=== PATIENT | female | born 1960 | race Caucasian/White ===

== ENCOUNTER 2017-04-08 00:41 | Emergency (ER) | payer MEDICAID ==
[~2017-04-08] VITALS: Ht 165.1 cm; Wt 53.2 kg
[2017-04-08 00:43] VITALS: BP 152/96
[2017-04-08] MEDS ORDERED: ACETAMINOPHEN 325 MG TABLET ONE (01:48)
[2017-04-08] MEDS ORDERED: DIPHENHYDRAMINE 25 MG CAPSULE ONE (01:48)
[2017-04-08] MEDS ORDERED: ACETAMINOPHEN 325 MG TABLET PO ONE (02:00)
[2017-04-08] MEDS ORDERED: DIPHENHYDRAMINE 25 MG CAPSULE PO ONE (02:00)
== END 2017-04-08 04:23 | disposition home or self-care (01) ==
LOC: ED 02:13
DX: F31.61 Bipolar disorder, current episode mixed, mild (principal); Z72.9 Problem related to lifestyle, unspecified; Z91.14 Patient's other noncompliance with medication regimen; F17.200 Nicotine dependence, unspecified, uncomplicated
CPT/HCPCS: 99284; Q0163

== ENCOUNTER 2017-04-09 23:50 | Emergency (ER) | payer MEDICAID ==
[~2017-04-09] VITALS: Ht 167.6 cm; Wt 54.5 kg
[2017-04-09 23:54] VITALS: BP 116/67
== END 2017-04-10 01:15 | disposition home or self-care (01) ==
LOC: ED 23:59
DX: S46.912A Strain of unspecified muscle, fascia and tendon at shoulder and upper arm level, left arm, initial encounter (principal); M75.92 Shoulder lesion, unspecified, left shoulder; X50.9XXA Other and unspecified overexertion or strenuous movements or postures, initial encounter; Y93.89 Activity, other specified; Y99.8 Other external cause status; Y92.009 Unspecified place in unspecified non-institutional (private) residence as the place of occurrence of the external cause
CPT/HCPCS: 99284

== ENCOUNTER 2017-04-14 22:04 | Emergency (ER) | payer MEDICAID ==
[~2017-04-14] VITALS: Ht 167.6 cm; Wt 50.8 kg
[2017-04-14 22:06] VITALS: BP 103/68
[2017-04-14] MEDS ORDERED: IBUPROFEN 200 MG TABLET ONE (22:54)
[2017-04-14] MEDS ORDERED: IBUPROFEN 200 MG TABLET PO ONE (23:00)
== END 2017-04-14 23:37 | disposition home or self-care (01) ==
LOC: ED 22:38
DX: M25.512 Pain in left shoulder (principal); M75.32 Calcific tendinitis of left shoulder; Z59.0 Homelessness; X58.XXXA Exposure to other specified factors, initial encounter; Y93.89 Activity, other specified; Y99.8 Other external cause status; Y92.488 Other paved roadways as the place of occurrence of the external cause
CPT/HCPCS: 99282

== ENCOUNTER 2017-04-27 07:34 | Emergency (ER) | payer MEDICAID ==
[~2017-04-27] VITALS: Ht 170.2 cm; Wt 50.8 kg
[2017-04-27 10:13] VITALS: BP 119/79
== END 2017-04-27 10:16 | disposition home or self-care (01) ==
LOC: ED 09:10
DX: R00.2 Palpitations (principal)
CPT/HCPCS: 93005; 99283

== ENCOUNTER 2017-05-11 21:18 | Emergency (ER) | payer MEDICAID ==
[~2017-05-11] VITALS: Ht 170.2 cm; Wt 50.0 kg
[2017-05-11] MEDS ORDERED: AZITHROMYCIN 500 MG TABLET PO ONE (23:30)
[2017-05-11] MEDS ORDERED: CEFTRIAXONE 250 MG IM ONE (23:30)
[2017-05-11] MEDS ORDERED: CEFTRIAXONE 250 MG ONE (23:30)
[2017-05-11] MEDS ORDERED: LIDOCAINE 1%, 20ML ONE (23:31)
[2017-05-11] MEDS ORDERED: AZITHROMYCIN 500 MG TABLET ONE (23:31)
[2017-05-12 00:16] VITALS: BP 107/70
== END 2017-05-12 00:27 | disposition home or self-care (01) ==
LOC: ED 23:10
DX: N89.8 Other specified noninflammatory disorders of vagina (principal)
CPT/HCPCS: 81001; 87077; 87086; 87186; 87210; 87491; 87591; 87808; 96372; 99284; J0696

== ENCOUNTER 2017-05-22 21:40 | Emergency (ER) | payer MEDICAID ==
[~2017-05-22] VITALS: Ht 167.6 cm; Wt 50.3 kg
[2017-05-23 00:11] VITALS: BP 90/51
== END 2017-05-23 00:14 | disposition home or self-care (01) ==
LOC: ED 21:58
DX: R10.30 Lower abdominal pain, unspecified (principal); G89.29 Other chronic pain
CPT/HCPCS: 81001; 87086; 99284

== ENCOUNTER 2017-06-08 09:03 | Emergency (ER) | payer MEDICAID ==
[~2017-06-08] VITALS: Ht 167.6 cm; Wt 50.3 kg
[2017-06-08 09:46] LABS: HEMATOCRIT 40.5 % (34.6-47.8); HEMOGLOBIN 13.4 g/dL (11.7-16.4); WHITE BLOOD COUNT 6.7 x10^3/uL (3.4-10)
[2017-06-08 09:59] LABS: BLOOD UREA NITROGEN 15 mg/dL (7-18)
[2017-06-08 10:05] LABS: ASPARTATE AMINO TRANSFERASE 14 U/L (15-37)
[2017-06-08 10:39] VITALS: BP 103/69
== END 2017-06-08 10:42 | disposition home or self-care (01) ==
LOC: ED 09:32
DX: R10.30 Lower abdominal pain, unspecified (principal)
CPT/HCPCS: 36415; 80053; 81003; 84703; 85025; 99284

== ENCOUNTER 2018-10-17 20:55 | Emergency (ER) | payer MEDICAID ==
[~2018-10-17] VITALS: Ht 170.2 cm; Wt 64.9 kg
[2018-10-17 22:20] LABS: MICROSCOPIC AUTO
[2018-10-17 22:23] LABS: CULTURE INDICATED? YES
[2018-10-17] MEDS ORDERED: PHENAZOPYRIDINE 200 MG TABLET ONE (22:26)
[2018-10-17] MEDS ORDERED: IBUPROFEN 200 MG TABLET ONE (22:27)
[2018-10-17] MEDS ORDERED: IBUPROFEN 200 MG TABLET PO ONE (22:30)
[2018-10-17] MEDS ORDERED: PHENAZOPYRIDINE 200 MG TABLET PO ONE (22:30)
[2018-10-17 23:23] VITALS: BP 131/74
== END 2018-10-17 23:25 | disposition home or self-care (01) ==
LOC: ED 22:28
DX: R10.30 Lower abdominal pain, unspecified (principal); R30.0 Dysuria
CPT/HCPCS: 81001; 87086; 99283

== ENCOUNTER 2018-10-28 20:59 | Emergency (ER) | payer MEDICAID ==
[~2018-10-28] VITALS: Ht 170.2 cm; Wt 57.0 kg
[2018-10-28 21:03] VITALS: BP 115/76
--- NOTE | 2018-10-28 21:05 | NUR ---
KELSEY LEONG FOR C/O "I NEED SOME ABILIFY AND SEROQUEL, I HAVE BABY FEVER". HX OF BIPOLAR AND DEPRESSION. DENIES SI/HI. PT. TURNED ON TV IMMEDIATLY UPON ENTERING ROOM AND STATED "GIVE ME ONE OF THOSE WARM BLANKETS LIKE THEY HAVE AT [employer]." "I WILL FINISH WATCHING THIS FOOTBALL GAME AND THEN CALL MY MOM/DAD TO COME GET ME." CONTINUOUS PULSE OX AND BP MONITORS PLACED. CALL LIGCYRUS IN REACH, WARM BLANKET PROVIDED. DR. JULIEN IN TO EVAL PT. AND DISCUSS POC. ALL SAFETY MEASURES OBSERVED.
[2018-10-28] MEDS ORDERED: QUETIAPINE 100MG TABLET ONE (21:12)
[2018-10-28] MEDS ORDERED: ARIPIPRAZOLE 5 MG TABLET ONE (21:12)
[2018-10-28] MEDS: QUETIAPINE 100MG TABLET PO SCH (21:15)
[2018-10-28] MEDS: ARIPIPRAZOLE 5 MG TABLET PO SCH (21:15)
== END 2018-10-28 21:43 | disposition home or self-care (01) ==
LOC: ED 21:18
DX: F99 Mental disorder, not otherwise specified (principal); Z76.0 Encounter for issue of repeat prescription; F31.9 Bipolar disorder, unspecified; Z72.9 Problem related to lifestyle, unspecified; Z75.9 Unspecified problem related to medical facilities and other health care; Z91.14 Patient's other noncompliance with medication regimen; Z98.51 Tubal ligation status
CPT/HCPCS: 99284

== ENCOUNTER 2018-11-08 07:18 | Emergency (ER) | payer MEDICAID ==
[~2018-11-08] VITALS: Ht 167.6 cm; Wt 60.3 kg
[2018-11-08 07:23] VITALS: BP 142/73
--- NOTE | 2018-11-08 07:35 | NUR ---
pt to room from lobby
--- NOTE | 2018-11-08 07:49 | NUR ---
RANDEE RN: WHEN ASKED WHAT SYMPTOMS BROUGHT PT TO THE ED SHE STATED "EVERYTHING. I NEED A REFERAL TO A GYNOCOLOGIST AND I NEED A NOTE FOR A THICKENER OPERATOR SAYING I CAN'T WALK UP AND DOWN STEPS TO A BUS... I HAVE TO GO TO THE BATHROOM EVERYTIME I SIT DOWN. IT'S NOT A UTI, I HAD THAT CLEARED UP WITH A DNC. I GOT THIS BELLY THAT MAKES ME PEE, IT'S NOT A UTI. I'M IN PERFECT HEALTH. I THOUGHT ABOUT HAVING ANOTHER BABY SO I STUFFED MYSELF WITH PEANUT BUTTER AND CHEESE CRACKERS BUT THE MAN I'M WITH AND I DECIDED WE DON'T WANT A BABY. I WANT A HYSTERECTOMY SO THAT'S WHY I NEED TO GO TO THE GYNOCOLOGIST." PT TAKEN TO US IN NAD.
[2018-11-08 08:00] LABS: BASOPHILS # (AUTO) 0.03 x10^3/uL (0-0.1); BASOPHILS % (AUTO) 1 % (0-1); EOSINOPHILS # (AUTO) 0.07 x10^3/uL (0-0.4); EOSINOPHILS % (AUTO) 1 % (1-7); LYMPHOCYTES # (AUTO) 1.81 x10^3/uL (1-3.4); LYMPHOCYTES % (AUTO) 31 % (22-44); MD NO; MEAN CORPUSCULAR HEMOGLOBIN 30.1 pg (27.0-34.8); MEAN CORPUSCULAR VOLUME 91.4 fL (80-100); MEAN PLATELET VOLUME 8.4 fL (7.4-10.4); MONOCYTES # (AUTO) 0.38 x10^3/uL (0.2-0.8); MONOCYTES % (AUTO) 6 % (2-9); NEUTROPHILS % (AUTO) 61 % (42-75); PLATELET COUNT 220 x10^3/uL (130-400); RED BLOOD COUNT 4.36 x10^6/uL (3.82-5.3); RED CELL DISTRIBUTION WIDTH 14.1 % (9.6-15.2)
--- NOTE | 2018-11-08 08:00 | NUR ---
pt to imaging.
[2018-11-08] MEDS ORDERED: PHENAZOPYRIDINE 200 MG TABLET ONE (08:07)
[2018-11-08 08:09] LABS: ALBUMIN 3.9 g/dL (3.4-5.0); ANION GAP 6 mmol/L (5-15); CALCIUM 9.1 mg/dL (8.5-10.1); CHLORIDE 110 mmol/L (98-107); CREATININE 0.78 mg/dL (0.55-1.02)
--- NOTE | 2018-11-08 08:28 | NUR ---
PT BACK FROM IMAGING.
--- NOTE | 2018-11-08 09:14 | NUR ---
PT TO BATHROOM. PT REFUSED TO BRING BACK UA SAMPLE. PT STATES "I DON'T KNOW." WHEN ASKED ABOUT THE SAMPLE. NO ACUTE DISTRESS NOTED. NO NEEDS REQUESTED AT THIS TIME.
--- NOTE | 2018-11-08 09:14 | NUR ---
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 IF NOT I'LL JUST GO TO [facility] AND HAVE A SIDEWAYS BABY."
--- NOTE | 2018-11-08 09:20 | NUR ---
PT AMBULATORY WITH STEADY GAIT TO BATHROOM. PT ABLE TO GIVE SAMPLE. NO ACUTE DISTRESS NOTED. PT REFUSING NIBP AND PULSE OX MONITOR,.
[2018-11-08] MEDS: PHENAZOPYRIDINE 200 MG TABLET PO ONE ×2 (09:21→09:22)
--- NOTE | 2018-11-08 09:23 | NUR ---
PT OFFERED PAIN MEDICATION. PT STATES "IS THIS THE ONE THAT MAKES MY PEE RED? NO THANK YOU."
[2018-11-08 09:43] LABS: MICROSCOPIC NOT IND
[2018-11-08 09:48] LABS: CULTURE INDICATED? NO
--- NOTE | 2018-11-08 10:17 | NUR ---
Patient/Caregiver given discharge instructions and they have confirmed that they understand the instructions. Patient ambulatory with steady gait. PT STATES SHE HAS MEDICAID AND WILL CALL [facility] FOR TAXI. PT LEFT WITH ALL PERSONAL BELONGINGS.
== END 2018-11-08 10:19 | disposition home or self-care (01) ==
LOC: ED 09:03
DX: N93.8 Other specified abnormal uterine and vaginal bleeding (principal); F17.210 Nicotine dependence, cigarettes, uncomplicated; F31.9 Bipolar disorder, unspecified
CPT/HCPCS: 36415; 76830; 80048; 81003; 82040; 85025; 99284

== ENCOUNTER 2018-12-04 00:22 | Emergency (ER) | payer MEDICAID ==
[~2018-12-04] VITALS: Ht 167.6 cm; Wt 58.9 kg
[2018-12-04] MEDS ORDERED: TRAZODONE 50MG TABLET PO ONE (02:13)
[2018-12-04] MEDS ORDERED: TRAZODONE 50MG TABLET ONE (02:23)
[2018-12-04] MEDS ORDERED: DIPH,PERTUSS(ACELL),TET VAC/PF 0.5 ML IM-VACC ONE ×2 (02:23→02:30)
[2018-12-04 02:38] VITALS: BP 132/78
== END 2018-12-04 02:40 | disposition home or self-care (01) ==
LOC: ED 01:59
DX: F31.9 Bipolar disorder, unspecified (principal); F41.9 Anxiety disorder, unspecified; Z72.9 Problem related to lifestyle, unspecified
CPT/HCPCS: 90471; 90715; 99284

== ENCOUNTER 2019-02-12 06:34 | Emergency (ER) | payer MEDICAID ==
[~2019-02-12] VITALS: Ht 167.6 cm; Wt 59.7 kg
[2019-02-12 06:37] VITALS: BP 115/78
== END 2019-02-12 06:54 | disposition home or self-care (01) ==
LOC: ED 06:46
DX: R21 Rash and other nonspecific skin eruption (principal)
CPT/HCPCS: 99283

== ENCOUNTER 2019-02-27 05:18 | Emergency (ER) | payer MEDICAID ==
[~2019-02-27] VITALS: Ht 167.6 cm; Wt 61.0 kg
--- NOTE | 2019-02-27 05:21 | NUR ---
CALLED FOR TRIAGE, NO ANSWER
[2019-02-27 05:22] VITALS: BP 117/78
--- NOTE | 2019-02-27 06:09 | NUR ---
pt d/c with d/c summary. All questions answered. pt ambulates to registration desk with steady gait for d/c home. pt denies any other needs pertaining to this visit.
== END 2019-02-27 06:19 | disposition home or self-care (01) ==
LOC: ED 06:00
DX: F29 Unspecified psychosis not due to a substance or known physiological condition (principal); F20.9 Schizophrenia, unspecified; F31.9 Bipolar disorder, unspecified
CPT/HCPCS: 82962; 99284

== ENCOUNTER 2019-03-17 01:59 | Emergency (ER) | payer MEDICAID ==
[~2019-03-17] VITALS: Ht 167.6 cm; Wt 60.0 kg
--- NOTE | 2019-03-17 02:25 | NUR ---
BIB [facility] AND TAKEN TO [facility] FOR BED BUGS. PT HAS RUNNY NOSE AND SORE THROAT. ALSO WANTS PRESCRIPTION REFILL FOR SEROQUEL AND ABILIFY.
[2019-03-17 03:07] VITALS: BP 130/70
== END 2019-03-17 03:10 | disposition home or self-care (01) ==
LOC: ED 02:26
DX: Z00.00 Encounter for general adult medical examination without abnormal findings (principal); Z72.9 Problem related to lifestyle, unspecified; F31.9 Bipolar disorder, unspecified; F17.200 Nicotine dependence, unspecified, uncomplicated
CPT/HCPCS: 99283

== ENCOUNTER 2019-03-26 22:54 | Emergency (ER) | payer MEDICAID ==
[~2019-03-26] VITALS: Ht 167.6 cm; Wt 59.6 kg
--- NOTE | 2019-03-26 23:16 | NUR ---
ASSUMED CARE OF PATIENT. PATIENT REPORTS VAGINAL PAIN AND DISCHARGE. VS STABLE. PT SEEN BY GABRIELA ROSALES NO ACUTE DISTRESS NOTED CALL LIGHT IN PLACE. WILL CONTINUE TO MONITOR.
--- NOTE | 2019-03-26 23:37 | NUR ---
PELVIC DONE BY GABRIELA ROSALES PT USING RESTROOM.
[2019-03-26 23:43] LABS: CLUE CELLS NONE SEEN (NONE SEEN)
[2019-03-26 23:44] LABS: WET PREP WBCS FEW (FEW)
[2019-03-26] MEDS ORDERED: AZITHROMYCIN 500 MG TABLET ONE (23:47)
[2019-03-26] MEDS ORDERED: CEFTRIAXONE 250 MG ONE (23:48)
[2019-03-26 23:51] LABS: CULTURE INDICATED? NO; MICROSCOPIC NOT IND
--- NOTE | 2019-03-26 23:59 | NUR ---
PT RESTING IN ROOM. NO ACUTE DISTRESS NOTED. CALL LIGHT IN PLACE. VS STABLE. WILL CONTINUE TO MONITOR.
[2019-03-27] MEDS ORDERED: CEFTRIAXONE 250 MG IM ONE
[2019-03-27] MEDS ORDERED: AZITHROMYCIN 500 MG TABLET PO ONE
[2019-03-27 00:16] VITALS: BP 128/80
== END 2019-03-27 00:18 | disposition home or self-care (01) ==
LOC: ED 23:34
DX: A60.03 Herpesviral cervicitis (principal); N76.0 Acute vaginitis; F17.210 Nicotine dependence, cigarettes, uncomplicated; Z72.9 Problem related to lifestyle, unspecified
CPT/HCPCS: 81003; 81025; 87210; 87491; 87591; 87808; 96372; 99283; J0696

== ENCOUNTER 2019-09-16 22:45 | Emergency (ER) | payer MEDICAID ==
[~2019-09-16] VITALS: Ht 167.6 cm; Wt 86.0 kg
[~2019-09-16 22:45] MED LIST: QUET25TA5 PO
--- NOTE | 2019-09-17 00:33 | NUR ---
URINE SAMPLE TAKEN TO LAB
[2019-09-17 00:42] VITALS: BP 123/77
[2019-09-17 00:46] LABS: MICROSCOPIC INDICATED
[2019-09-17 00:47] LABS: CULTURE INDICATED? YES
[2019-09-17 00:48] LABS: HCG UR SG 1.025 (1.003-1.030)
--- NOTE | 2019-09-17 00:57 | NUR ---
PT SITTING CALMLY IN [place], DENIES NEEDS AT THIS TIME, CHART UP FOR RECHECK
== END 2019-09-17 01:09 | disposition home or self-care (01) ==
LOC: ED 23:32
DX: R39.15 Urgency of urination (principal); F31.9 Bipolar disorder, unspecified; F17.200 Nicotine dependence, unspecified, uncomplicated; Z72.89 Other problems related to lifestyle
CPT/HCPCS: 81001; 81025; 87086; 99283

== ENCOUNTER 2019-10-19 00:26 | Emergency (ER) | payer MEDICAID ==
[~2019-10-19] VITALS: Ht 170.2 cm; Wt 64.5 kg
[2019-10-19 00:31] VITALS: BP 118/70
--- NOTE | 2019-10-19 00:42 | NUR ---
pt seen in triage for a bug in ear, no bug found. pt asked for blanket, which was given. pt doesnt want to come to [facility] and wishes to go. offered cab to [facility], pt stated she doesnt want to go there as they will have bugs also like the [facility]. she stated she is calling her community case manager in am to find other place to live.
== END 2019-10-19 00:45 | disposition home or self-care (01) ==
LOC: ED 00:39
DX: L29.9 Pruritus, unspecified (principal); H92.03 Otalgia, bilateral; F17.200 Nicotine dependence, unspecified, uncomplicated
CPT/HCPCS: 99281

== ENCOUNTER 2019-10-31 00:32 | Emergency (ER) | payer MEDICAID ==
[~2019-10-31] VITALS: Ht 167.6 cm; Wt 63.5 kg
[2019-10-31 00:35] VITALS: BP 147/80
--- NOTE | 2019-10-31 01:07 | NUR ---
THIS IS A 58 YO FEMALE COMING IN FOR " I HAVE A NERVOUS BREAK DOWN " " I AM TERRIFIED ". PATIENT HAS HX OF BIPOLAR DISORDER, DEPRESSION, PREVIOUS ETOH ABUSE 2 YEARS SOBER. PATIENT STATES THIS HAS HAPPENED BEFORE, "BUT NOT LIKE THIS". PATIENT APPEARS CALM, SPEAKING IN FULL SENTENCES, DENIES SOB, DENIES CHEST PAIN. VSS IN TRIAGE. PATIENT MEDICATED PER EMAR, TOLERATED WELL. CALL LIGHT IN REACH, DENIES NEEDS AT THIS TIME.
--- NOTE | 2019-10-31 01:12 | NUR ---
WHEN ASKED HOW PATIENT WAS FEELING AFTER MEDICATION, PATIENT STATES "I FEEL RELAXED NOW". NAD, CALL LIGHT IN REACH, DENIES NEEDS AT THIS TIME. MD NOTIFIED.
== END 2019-10-31 01:47 | disposition home or self-care (01) ==
LOC: ED 01:29
DX: F41.1 Generalized anxiety disorder (principal)
CPT/HCPCS: 99282; Q0177

== ENCOUNTER 2020-02-02 23:59 | Emergency (ER) | payer MEDICAID ==
[~2020-02-02] VITALS: Ht 167.6 cm; Wt 65.3 kg
[2020-02-03 00:04] VITALS: BP 141/93
--- NOTE | 2020-02-03 00:24 | NUR ---
pt to br with ua cup. instructed, gave ua, cloudy sample sent to lab. pt in room with no current needs.
--- NOTE | 2020-02-03 00:38 | NUR ---
cxr to bs
[2020-02-03 00:44] LABS: CULTURE INDICATED? YES; MICROSCOPIC INDICATED
== END 2020-02-03 01:42 | disposition home or self-care (01) ==
LOC: ED 02-03 00:34
DX: N30.00 Acute cystitis without hematuria (principal); R05 Cough; R06.02 Shortness of breath; R10.9 Unspecified abdominal pain
CPT/HCPCS: 71045; 81001; 87077; 87086; 87186; 99284

== ENCOUNTER 2020-03-06 00:26 | Emergency (ER) | payer MEDICAID ==
[~2020-03-06] VITALS: Ht 167.6 cm; Wt 65.0 kg
[2020-03-06 00:29] VITALS: BP 161/83
--- NOTE | 2020-03-06 00:48 | NUR ---
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 pt connected to monitor. vss. pt uncooperative with physical exam. pt declines to answer any other questions and laughs hysterically instead. awaiting edmd assessment.
--- NOTE | 2020-03-06 00:52 | NUR ---
DR. JULIO TO BS FOR ASSESSMENT. AWAITING FURTHER ORDERS.
--- NOTE | 2020-03-06 00:57 | NUR ---
pt states that she has no medical complaints at this time but would like some "hospital socks." pt provided with socks. plan to dc.
== END 2020-03-06 01:13 | disposition home or self-care (01) ==
LOC: ED 01:10
DX: J44.9 Chronic obstructive pulmonary disease, unspecified (principal); F17.210 Nicotine dependence, cigarettes, uncomplicated; Z72.9 Problem related to lifestyle, unspecified; Z98.51 Tubal ligation status
CPT/HCPCS: 99281; 99406

== ENCOUNTER 2020-03-08 15:14 | Emergency (ER) | payer MEDICAID ==
[~2020-03-08] VITALS: Ht 167.6 cm; Wt 64.8 kg
[2020-03-08 15:28] VITALS: BP 117/79
== END 2020-03-08 18:46 | disposition home or self-care (01) ==
LOC: ED 17:41
DX: F23 Brief psychotic disorder (principal); F22 Delusional disorders; F17.200 Nicotine dependence, unspecified, uncomplicated; F32.9 Major depressive disorder, single episode, unspecified
CPT/HCPCS: 99281

== ENCOUNTER 2020-04-02 00:33 | Emergency (ER) | payer MEDICAID ==
[~2020-04-02] VITALS: Ht 167.6 cm; Wt 64.6 kg
[2020-04-02 00:35] VITALS: BP 137/82
[2020-04-02 01:12] LABS: HCG UR SG 1.005 (1.003-1.030); MICROSCOPIC INDICATED
[2020-04-02] MEDS ORDERED: FOSFOMYCIN 3 GM PACKET PO ONE (01:30)
[2020-04-02] MEDS ORDERED: FOSFOMYCIN 3 GM PACKET ONE (01:32)
== END 2020-04-02 01:38 | disposition home or self-care (01) ==
LOC: ED 01:01
DX: N30.00 Acute cystitis without hematuria (principal)
CPT/HCPCS: 81001; 81025; 87086; 87147; 99283